=== PATIENT | female | born 1970 | race Caucasian/White ===

== ENCOUNTER 2024-12-02 08:00 | Day surgery (SDC) | payer OTHER ==
[2024-12-01 14:45] LABS: Absolute Lymphocytes (CBC) 1.2 K/uL (0.7-4.9); Hematocrit 38.7 % (36.0-45.0); Hemoglobin 12.9 g/dL (12.0-15.0); MCH 29.9 pg (27.0-35.0); MCHC 33.3 g/dL (32.0-36.0); MCV 89.8 fL (80-100); MPV 7.6 fL (7.6-11.3); Nucleated RBC Absolute Count 0.0 (0-0); Nucleated Red Blood Cells % 0.0 % (0-0); RBC Red Blood Cell Count 4.31 M/uL (3.86-4.86); White Blood Count 5.50 thou/uL (4.3-10.9)
[2024-12-01 14:53] LABS: PT Prothrombin Time 12.8 SECONDS (10-13.0); PTT, Activated Partial Thromb 32.6 SECONDS (27.2-37.4); Protime INR 1.14
[2024-12-01 14:59] LABS: Anion Gap 6.3 mEq/L (5.0-15.0); BUN Blood Urea Nitrogen 15.0 mg/dL (7-18); Glucose Level 102.0 mg/dL (74-106); Potassium 4.3 mEq/L (3.5-5.1)
[2024-12-02] MEDS ORDERED: HEPARIN 10,000 UNIT/10 ML VIAL IV ONE (08:25)
[2024-12-02] MEDS ORDERED: HEPARIN 5000 UNIT/ML 1 ML VIAL ONE (08:25)
[2024-12-02] MEDS ORDERED: VERAPAMIL HCL 10 MG/4 ML VIAL IV ONE (08:25)
[2024-12-02] MEDS ORDERED: HEPA 1000U/500MLS 2,000 UNIT/1,000 ML BAG IV ONE (08:25)
[2024-12-02] MEDS ORDERED: LIDOCAINE 1% 20 ML MDV ONE (08:25)
[2024-12-02] MEDS ORDERED: ATROPINE SULF 1 MG/10 ML SYR IV ONE (08:26)
[2024-12-02] MEDS ORDERED: NA CHLORIDE 0.9% 500 ML ONE (08:28)
[2024-12-02 08:34] VITALS: O2SAT 95
[2024-12-02] MEDS ORDERED: FENTANYL CITR 100 MCG/2 ML ONE (08:40)
[2024-12-02] MEDS ORDERED: MIDAZOLAM HCL 2 MG/2 ML INJ ONE (08:41)
[2024-12-02] MEDS ORDERED: FUROSEMIDE 20 MG/ 2ML VIAL ONE (09:37)
--- NOTE | 2024-12-02 10:15 | P.OP ---
Date of Service: 12/02/24 Procedures Performed: Coronary angiography Left heart catheterization Moderate sedation Indication: R07.9: Chest pain, unspecified R06.00: Dyspnea, unspecified R94.30: Abnormal result of cardiovascular function study, unspecified I25.119: Atherosclerotic heart disease of [place] coronary artery with unspecified angina pectoris Pre-procedure Diagnosis: Atherosclerotic heart disease of [place] coronary artery with unspecified angina pectoris Post-procedure Diagnosis: Nonobstructive coronary artery disease, HFpEF Consent: Informed consent was obtained after discussion of risks, benefits, and alternatives. Sedation and Anesthesia: ASA Classification II. Moderate sedation was provided using IV midazolam 1 mg and IV fentanyl 25 mcg. Sedation began at 9:10 AM and ended at 9:39 AM, for a total duration of 29 min. Continuous hemodynamic, respiratory, pulse oximetry, and level of consciousness monitoring was performed throughout the procedure in accordance with hospital policy. The patient tolerated sedation well without adverse events. Procedure Description: The patient was prepped and draped in the usual sterile fashion, and a procedural time-out confirmed patient identity, procedure, and site. Ultrasound-guided vascular access was obtained via the right radial artery using a 6 [place] sheath. A 5 [place] diagnostic catheter was advanced over a wire under fluoroscopic guidance to the left ventricle, left heart catheterization was performed, and the LVEDP was measured at 25 mmHg. The catheter was slowly pulled back across the aortic valve and any trans-aortic gradient was assessed. Selective RCA coronary angiography was performed, after which selective angiography of the LM, LAD, and LCx arteries was obtained in standard projections. At the conclusion of the procedure all catheters and the sheath were removed, hemostasis was achieved with TR band, and the patient tolerated the procedure without immediate complications. IV furosemide 40 mg x 1 was given in the Line Patroller for elevated LVEDP. Coronary Findings: - Right dominant system. - Left Main (LM): Normal. - Left Anterior Descending (LAD): Mild disease in the proximal segment, remainder of the LAD and diagonal branches are free of significant disease. - Left Circumflex (LCx): Normal. - Right Coronary Artery (RCA): Normal. Complications: None. Estimated Blood Loss: <10 mL. Post-procedure Plan: The patient will be monitored in the recovery area per protocol. Continue guideline-directed medical therapy including statin and diuretics. Uptitrate GDMT for HFpEF. Weight loss. Evaluation for ZAKI. Aggressive lifestyle and risk factor modification.
[2024-12-02 11:36] VITALS: BP 109/74
== END 2024-12-02 11:30 | disposition home or self-care (01) ==
LOC: CCL 08:00
PROVIDERS: ATTEND Internal Medicine
DX: I25.119 Atherosclerotic heart disease of native coronary artery with unspecified angina pectoris (principal); I11.0 Hypertensive heart disease with heart failure; I50.22 Chronic systolic (congestive) heart failure; G47.30 Sleep apnea, unspecified; E78.2 Mixed hyperlipidemia; I87.2 Venous insufficiency (chronic) (peripheral); F41.9 Anxiety disorder, unspecified; F32.A Depression, unspecified; Z01.818 Encounter for other preprocedural examination; Z79.899 Other long term (current) drug therapy; Z88.1 Allergy status to other antibiotic agents; Z88.2 Allergy status to sulfonamides; Z88.8 Allergy status to other drugs, medicaments and biological substances; Z82.49 Family history of ischemic heart disease and other diseases of the circulatory system
CPT/HCPCS: 36415; 76937; 80048; 85025; 85610; 85730; 93458; 99152; 99153; C1893; J0461; J1644; J1938; J2003; J2250; J3010; J7040; Q9966